=== PATIENT | female | born 1955 | race Caucasian/White ===

== ENCOUNTER 2017-04-14 12:13 | Emergency (ER) | payer BC ==
[~2017-04-14] VITALS: Ht 175.3 cm; Wt 81.6 kg
[~2017-04-14 12:13] MED LIST: LRT5 PO; REVEIWED
[2017-04-14 12:15] VITALS: TEMP 36.9; Ht 175.3 cm; Wt 81.6 kg
[2017-04-14] MEDS ORDERED: RABIES VACCINE (IMOVAX) HUMAN DIPL CELL 2.5 INTER.UNIT/ML SYR IM. ONE (13:00)
[2017-04-14] MEDS ORDERED: RABIES IMMUNE GLOBULIN (HUMAN) 150 INTER.UNIT/ML 2 ML VIAL IM. ONE (13:00)
[2017-04-14] MEDS ORDERED: KRIL1CAP24 PO (14:10)
[2017-04-14] MEDS ORDERED: CYAN10005 PO (14:10)
[2017-04-14] MEDS ORDERED: CHOL1000 PO (14:10)
[2017-04-14] MEDS ORDERED: MULT-190 PO (14:10)
[2017-04-14] MEDS ORDERED: CEPH500C PO (14:30)
[2017-04-14 15:32] VITALS: BP 134/90; PULSE 71; O2SAT 96
--- NOTE | 2017-04-15 18:49 | EMERGENCY ROOM VISIT NOTE ---
History First contact with patient: 12:27 Chief Complaint: BITE Stated Complaint: RACOON BITE History of Present Illness The patient is a 62 year old white female who presents to the Emergency Room with complaints of a raccoon bite on her right lower leg. Patient was in bare [place] and was starting to pick blueberries. She states a angry raccoon came charging out of the bushes and attacked her leg. She tried to send it off with her plastic bucket. She states it had numerous porcupine quills retreating from its face. She states she was bitten twice on her right lower leg. She was not able to kill the animal. She came straight here for evaluation. This was in the middle of the day. She believes it was rapid. She thinks her tetanus is up-to-date. No other complaints at this time. She denies any numbness, tingling, or loss of motion. Review of Systems REVIEW OF SYSTEM: HEENT: No dizziness, visual problems, hearing loss, or tinnitus. There is no difficulty swallowing and no oral lesions are present. LYMPH: No adenopathy. PULMONARY: No cough, shortness of breath, sputum production or hemoptysis. CARDIOVASCULAR: No chest pain, palpitations, shortness of breath or peripheral edema. GASTROINTESTINAL: No diarrhea, constipation, nausea, vomiting, or abdominal pain. GENITOURINARY: No dysuria, frequency, urgency or nocturia. NEUROLOGIC: No weakness, muscle tenderness, epilepsy or history of neurological problems. MUSCULOSKELETAL: No history of joint tenderness/swelling. No history of arthritis or arthralgias. SKIN: No rashes or lesions. PSYCHIATRIC: No history of depression or mental illness. ENDOCRINE: No history of diabetes, thyroid disorders, or abnormal hair growth. Past Medical/Surgical History Previous surgeries: D and C. Medical history: history of pneumonia. Family History parents are . significant for cancer and heart disease Social History Smoking Status: Never Smoker Smokeless Tobacco Use: No Alcohol Use: occasionally Drug Use: none Marital Status: Housing Status: lives with family Occupation Status: unemployed Current/Historical Medications Scheduled Cephalexin Monohydrate (Keflex), 500 MG PO QID Cholecalciferol (Vitamin D3), 1 TAB PO DAILY Cyanocobalamin (Vitamin B-12), 1,000 MCG PO DAILY Krill Oil (Krill Oil 500 mg), 500 MG PO DAILY Ocuvite Preservision (Ocuvite Preservision), 1 TAB PO DAILY Physical Exam Vital Signs Date Time Temp Pulse Resp B/P (MAP) Pulse Ox O2 Delivery O2 Flow Rate FiO2 04/14/17 15:32 71 16 134/90 96 04/14/17 14:13 65 16 157/92 99 Room Air 04/14/17 13:49 63 04/14/17 13:45 61 15 178/94 98 Room Air 04/14/17 12:15 36.9 75 18 163/89 97 Room Air Pain Rating (0-10): 0 Physical Exam Gen.: Well-developed, well-nourished, middle-aged white female, in no acute distress. Sitting on a bed. Alert and oriented. Skin:Warm and dry with good turgor. No rashes. She has 2 fairly large puncture donohue on the anterior lateral leg. Smaller abrasions are also present. She has a large area of abrasion on the posterior lateral aspect of the lower leg. No puncture donohue there. Bleeding is controlled. No foreign material is visible. Developing ecchymosis and erythema around the puncture donohue and abrasions on the lateral leg. The patient is not diaphoretic. No additional abrasions. Musculoskeletal: Gross motor function is intact to the toes, ankle, and knee. Minor discomfort with palpation over the lateral aspect of her leg. Neurologic: Gross sensation is intact across the right leg by soft touch. Peripheral pulses are 2+. Medical Decision & Procedures Medications Administered Medications (Trade) Dose Ordered Sig/Mayela Route Start Time Stop Time Status Last Admin Dose Admin Rabies Immune Globulin (Imogam Rabies Inj) 1,630 interunit ONCE ONCE IM. 04/14/17 13:00 04/14/17 13:01 DC 04/14/17 13:26 1,630 INTERUNIT Rabies Vaccine Human Diploid Cell (Imovax Rabies) 2.5 interunit ONCE ONCE IM. 04/14/17 13:00 04/14/17 13:01 DC 04/14/17 13:27 2.5 INTERUNIT Imovax 1 ML IM. Rabies immunoglobulin 1630 units IM ED Course Patient was educated regarding today's findings. Conservative care measures were discussed. Wounds were cleansed with sterile saline. Triple antibiotic ointment was applied and they were bandaged appropriately. She may change these as needed for swelling. Tylenol and Motrin every 6 hours as needed for mild discomfort. Ice and elevate frequently to reduce pain and swelling. Likelihood for rabies exposure was discussed. She would like to proceed with vaccination. Imovax 1 ML IM was administered. She was also administered rabies immunoglobulin IM. Follow-up in days 3, 7, 14 for additional Imovax injection. She will be in [facility] for day 7 dose. She will try and receive it there in [place]. Animal bite form was completed. Return to the ED for any other concerns or follow-up with her PCP. Possibility of additional bacterial infection was discussed. She was placed on Keflex 500 mg 4 times a day 7 days as a prophylaxis. Benadryl every 6 hours as needed for any itching. Cleanse daily with soap and water. Medical Decision Possibility of rabies, tendon involvement, bacterial infection, and retained foreign body were considered. I do not suspect fracture. Medication Reconcilliation Current Medication List: was personally reviewed by me Blood Pressure Screening Patient's blood pressure: Elevated blood pressure Blood pressure disposition: Elevated BP felt to be situational Impression Primary Impression: Bitten by raccoon, initial encounter Departure Information Dispostion Home / Self-Care Condition GOOD Prescriptions Cephalexin Monohydrate (Keflex) 500 Mg Cap 500 MG PO QID, #28 CAP Prov: Stalin Loyd,P.A. 04/14/17 Forms HOME CARE DOCUMENTATION FORM, Days to leave dressing on : 1 Clean wound with;: soap and water Number of times/day to clean wound: 2 Coat wound with: antibiotic ointment MOTRIN USE, TYLENOL USE, WOUND CARE INSTRUCTIONS, IMPORTANT VISIT INFORMATION Patient Instructions Rabies, My [facility] Additional Instructions Follow-up on Sunday, Sunday, and the following Sunday for your next injections Tylenol and Motrin every 6 hours as needed for mild discomfort Benadryl every 6 hours as needed for any itching or redness Return to the ED for any other concerns Watch for any signs of infection Keflex one pill 4 times a day 7 days Ice and elevate frequently to reduce pain and swelling
== END 2017-04-14 15:33 | disposition home or self-care (01) ==
LOC: C.EDB 12:16 → C.EDD 15:33
DX: S81.851A Open bite, right lower leg, initial encounter (principal); W55.51XA Bitten by raccoon, initial encounter; Y92.89 Other specified places as the place of occurrence of the external cause; Z20.3 Contact with and (suspected) exposure to rabies; Z23 Encounter for immunization; Z87.01 Personal history of pneumonia (recurrent); Z80.9 Family history of malignant neoplasm, unspecified; Z82.49 Family history of ischemic heart disease and other diseases of the circulatory system

== ENCOUNTER 2017-04-17 11:03 | Emergency (ER) | payer BC ==
[~2017-04-17] VITALS: Ht 297.2 cm; Wt 82.8 kg
[~2017-04-17 11:03] MED LIST changes: +CEPH500C PO; +CHOL1000 PO; +CYAN10005 PO; +KRIL1CAP24 PO; -LRT5 PO; +MULT-190 PO; -REVEIWED
[2017-04-17 11:36] VITALS: TEMP 36.7; Ht 297.2 cm; Wt 82.8 kg
[2017-04-17] MEDS ORDERED: RABIES VACCINE (IMOVAX) HUMAN DIPL CELL 2.5 INTER.UNIT/ML SYR IM. ONE (11:42)
[2017-04-17] MEDS ORDERED: ASPI81TA28 PO (11:44)
--- NOTE | 2017-04-17 11:57 | EMERGENCY ROOM VISIT NOTE ---
ED Visit Note First contact with patient: 11:47 CHIEF COMPLAINT: Rabies prophylaxis HISTORY OF PRESENT ILLNESS: This 62-year-old female patient presents to the emergency department ambulatory for their second rabies shot. The patient has not had any complications from the previous injections. They deny any other complaints. The patient was bitten by a raccoon. She states that the bites are healing well. She is on antibiotics. REVIEW OF SYSTEMS: A 6 system review of systems was completed with positives and pertinent negatives listed in the HPI. ALLERGIES: Pseudoephedrine MEDICATIONS: Unchanged from previous PMH: Unchanged from previous visit. PHYSICAL EXAM: Vital Signs: Reviewed Nurse's notes, vital signs stable. GENERAL : 62-year-old female, in no acute distress, well-developed, well-nourished. HEAD: Atraumatic, without temporal or scalp tenderness. EYES: PERRLA, EOMI, no discharge or injection. SKIN: Normal. NEUROLOGICAL: Alert and cooperative. Sensory and motor functions grossly intact. EMERGENCY DEPARTMENT COURSE: I examined the patient. The patient was given Imovax 1ml IM. The patient was observed for 20 minutes with no reaction. The patient was discharged home in stable condition. DIAGNOSIS: Rabies prophylaxis DISCHARGE INSTRUCTIONS: Continue vaccination schedule as directed. Return for any complications. Current/Historical Medications Scheduled Aspirin (Aspirin Ec), 81 MG PO DAILY Cephalexin Monohydrate (Keflex), 500 MG PO QID Cholecalciferol (Vitamin D3), 1 TAB PO DAILY Cyanocobalamin (Vitamin B-12), 1,000 MCG PO DAILY Krill Oil (Krill Oil 500 mg), 500 MG PO DAILY Ocuvite Preservision (Ocuvite Preservision), 1 TAB PO DAILY Allergies Coded Allergies: Pseudoephedrine (Verified Allergy, Mild, 04/17/17) Vital Signs Date Time Temp Pulse Resp B/P (MAP) Pulse Ox O2 Delivery O2 Flow Rate FiO2 04/17/17 12:19 72 20 128/76 99 04/17/17 11:36 36.7 64 18 141/84 97 Room Air Medications Administered Medications (Trade) Dose Ordered Sig/Mayela Route Start Time Stop Time Status Last Admin Dose Admin Rabies Vaccine Human Diploid Cell (Imovax Rabies) 2.5 interunit STK-MED ONCE IM. 04/17/17 11:42 04/17/17 11:43 DC 04/17/17 12:03 2.5 INTERUNIT Departure Information Impression Primary Impression: Need for post exposure prophylaxis for rabies Dispostion Home / Self-Care Condition GOOD Referrals Guillermina Mackenzie D.O. (PCP) Patient Instructions My [facility] Additional Instructions Continue vaccination schedule as directed. Return for any complications. continue antibiotics
[2017-04-17 12:19] VITALS: BP 128/76; PULSE 72; O2SAT 99
== END 2017-04-17 12:21 | disposition home or self-care (01) ==
LOC: C.EDB 11:08 → C.EDD 12:21
DX: Z20.3 Contact with and (suspected) exposure to rabies (principal); Z23 Encounter for immunization; Z79.82 Long term (current) use of aspirin; Z79.899 Other long term (current) drug therapy

== ENCOUNTER → 2017-06-06 | Outpatient (CLI) | payer BC ==
[~2017-06-06] MED LIST changes: +ASPI81TA28 PO
--- NOTE | 2017-06-07 13:55 | MAMMOGRAPHY REPORT ---
BILATERAL DIGITAL SCREENING MAMMOGRAM TOMOSYNTHESIS WITH CAD: 06/06/2017 CLINICAL HISTORY: Routine screening. Patient has no complaints. TECHNIQUE: Breast tomosynthesis in addition to standard 2D mammography was performed. Current study was also evaluated with a Computer Aided Detection (CAD) system. COMPARISON: Comparison is made to exams dated: 04/17/2016 mammogram, 04/02/2015 mammogram, 03/31/2014 gabriella mogram, 03/25/2013 mammogram, 03/15/2012 mammogram, and 03/09/2011 mammogram - [facility]. BREAST COMPOSITION: There are scattered areas of fibroglandular density in both breasts. FINDINGS: No suspicious masses, calcifications, or areas of architectural distortion are noted in ei ther breast. There has been no significant interval change compared to prior exams. Bilateral benign- appearing calcifications are not significantly changed. IMPRESSION: ACR BI-RADS CATEGORY 2: BENIGN There is no mammographic evidence of malignancy. A 1 year screening mammogram is recommended. The pa tient will receive written notification of the results. Approximately 10% of breast cancers are not detected with mammography. A negative mammographic report should not delay biopsy if a clinically suggestive mass is present. Maria Esther Harrison M.D. /:06/06/2017 15:57:38 Screw Machine Tool Setter: Cindy SMITH(Rebeca)(Crystal)(VIDYA), [facility] letter sent: Normal 1/2 BI-RADS Code: ACR BI-RADS Category 2: Benign
== END | disposition home or self-care (01) ==
LOC: C.MAMM 14:01
PROVIDERS: ATTEND Family Medicine
DX: Z12.31 Encounter for screening mammogram for malignant neoplasm of breast (principal)

== ENCOUNTER 2024-01-01 19:49 | Observation (INO) ==
--- NOTE | 2024-01-01 20:09 | Emergency Department Note ---
Impression & Plan SVT (supraventricular tachycardia), Lung cancer ED Provider Note Provider: David Westfall MD DATE OF SERVICE: 01/01/2024 CHIEF COMPLAINT: Palpitations/dizzy/near syncope HISTORY OF PRESENT ILLNESS: Patient is a 68-year-old female history of GERD and lung cancer currently on osimertinib for the past 2 years presenting this evening after developing palpitations and fast heart rate. States she done a little bit of light reading today and had dinner and then felt her heart rate very fast. [place] a little lightheaded and near syncopal but did not pass out. No significant chest pain reported. Did not feel quite right. Noted heart rate was very elevated and tried putting cool rags on her face but then called 911. Found to be in SVT with heart rate in excess of 200 bpm. No history of similar. Patient reports she has had some cardiac evaluation the past due to some brief episodes of low but dizziness but this was different. No significant cardiac history reported. Patient reports she knows that her medication can cause arrhythmia issues. No other recent illnesses reported. Given adenosine by EMS and had resolution of symptoms. PAST MEDICAL HISTORY: As noted above MEDICATIONS: Multivitamin,osimertinib SOCIAL HISTORY: Resides at home PHYSICAL EXAM: GENERAL: alert and oriented in no acute distress on stretcher Head: normocephalic and atraumatic EYES: No injection, discharge or icterus. NECK: Trachea midline. ENT: Mucous membranes pink and moist. Pharynx without erythema or exudate. LUNGS: Airway patent. No retractions. Breath sounds clear with good air entry bilaterally. HEART: Regular rate and rhythm. No chest wall tenderness SKIN: Acyanotic, warm, dry, without rashes EXTREMITIES: Without swelling, tenderness or deformity NEUROLOGICAL: No focal deficits. No aphasia. No facial droop or slurred speech. Ambulatory. EK bpm normal sinus rhythm. No PVC or PAC. No acute ST segment elevation or depression with a QTc of 470. CONTINUOUS CARDIAC MONITORING: was ordered and showed a heart rate of bpm in Patient's laboratory studies and imaging reviewed. Differential includes Premature contractions, electrolyte abnormality, cardiac dysrhythmia, thyroid dysfunction, pulmonary embolism, infection, gastrointestinal, as well as other pathologies. IMPRESSION/MEDICAL DECISION MAKING: History of cancer for the past 2 years on monoclonal antibody. This medication is noted sometimes cause cardiac arrhythmias. No significant personal cardiac history and has had workup in the past 6 months for lipid to dizziness including with echo that was reassuring. Patient had prehospital EKG consistent with SVT over 200 bpm. Received 6 mg of adenosine at termination of rhythm prior to arrival. Denies any respiratory issues or swelling. Denies any significant chest pain. Basic labs and electrolytes were completed. Do question significantly if this is related to medication induced episode. Does follow with oncology Dr. Kwan. Do not feel chest x-ray be that beneficial I doubt a primary pulmonary issue. Doubt this is PE given her rapid resolution of symptomatologies. Blood work without significant abnormality with a borderline anemia and slight leukopenia. Potassium 3.4 not severely off. Magnesium 1.9. Troponin 15 but do not consider the significant abnormal especially in light of an elevated heart rate today. TSH is normal. COVID and urinalysis negative. Discussed with the patient coming in for further cardiac evaluation and monitoring given the prolonged episode of SVT and possible medication related reaction. Hospitalist contacted the patient very much in agreement. DIAGNOSIS: SVT DISPOSITION: Hospitalist will evaluate Patient was agreeable with this plan. Past Med/Surg History Medical History Stroke Hypertension Surgical History History of surgery H/O dilation and curettage History of surgery Cubero teeth extracted Family History Mother Hypertension Cancer Heart disease Father Hypertension Family history of adverse reaction to anesthesia Cancer Brother Hypertension Sister Cancer Son Asthma Grandmother Stroke Social History Smoking Status: Never smoker Tobacco Type: Cigarettes packs per day: 2; Hx Alcohol Use: Yes Alcohol type: beer Alcohol Intake Frequency: 4 or More x per/Week Hx Substance Use: No Preferred Language: Malagasy marital status: Current Living Situation: Spouse current occupational status: retired Feels Safe at Home: Yes Allergies Allergies Allergy/AdvReac Type Severity Reaction Status Date / Time pseudoephedrine Allergy Severe THROAT Verified 01/01/24 21:38 SWELLED Iodinated Contrast Media Allergy Intermediate Hives Verified 01/01/24 21:38 Home Meds Home Medications Medication Instructions Recorded Confirmed multivitamin 1 tab PO DAILY 01/01/24 01/01/24 osimertinib 80 mg tablet (Tagrisso) 80 mg PO DAILY 01/01/24 01/01/24 Results & Data (ED) Vital Signs Vital Signs - 24 hr 01/01/24 19:53 01/01/24 19:59 01/01/24 20:03 Temperature 36.9 C Temperature Source Oral Pulse Rate 97 H 97 H Pulse Rate [Apical] Respiratory Rate 19 Blood Pressure 142/90 H Blood Pressure [Left Arm] Blood Pressure Mean 107 Blood Pressure Mean [Left Arm] Pulse Oximetry 96 98 Oxygen Delivery Method Room Air Room Air Oxygen Flow Rate 0 Sepsis Recent Fever Within 48 Hours No Sepsis New/Unexplained Change in Mental Status N/A Sepsis Action Taken by Nursing No Action Required 01/01/24 21:00 Temperature Temperature Source Pulse Rate Pulse Rate [Apical] 83 Respiratory Rate 16 Blood Pressure Blood Pressure [Left Arm] 110/68 Blood Pressure Mean Blood Pressure Mean [Left Arm] 82 Pulse Oximetry 98 Oxygen Delivery Method Room Air Oxygen Flow Rate Sepsis Recent Fever Within 48 Hours Sepsis New/Unexplained Change in Mental Status Sepsis Action Taken by Nursing Laboratory Data 01/01/24 20:23 01/01/24 20:23 Lab Results 01/01/24 Range/Units 20:23 WBC 3.32 L (4.8-10.8) K/ul RBC 3.57 L (4.20-5.40) M/uL Hgb 11.7 L (12.0-16.0) g/dl Hct 33.9 L (37.0-47.0) % MCV 95.0 (80.0-100.0) fL MCH 32.8 (25.0-34.0) pg MCHC 34.5 (32.0-36.0) g/dL RDW Std Deviation 44.6 (36.4-46.3) fL RDW Coeff of Janice 12.7 (11.5-14.5) % Plt Count 139 (130-400) K/uL MPV 10.2 (9.4-12.4) fL Immature Gran % (Auto) 0.3 % Neut % (Auto) 59.7 % Lymph % (Auto) 29.5 % [place] % (Auto) 9.0 % Eos % (Auto) 1.2 % Baso % (Auto) 0.3 % Neut # (Auto) 1.98 (1.40-6.50) K/uL Lymph # (Auto) 0.98 L (1.20-3.40) K/uL [place] # (Auto) 0.30 (0.11-0.59) K/uL Eos # (Auto) 0.04 (0.00-0.50) K/uL Baso # (Auto) 0.01 (0.00-0.20) K/uL Immature Gran # (Auto) 0.01 (0.01-0.20) K/uL PT 10.5 (9.0-12.0) Seconds INR 1.0 (0.9-1.1) APTT 25 (21-31) Seconds PTT Ratio 0.9 Sodium 137 (136-145) mmol/L Potassium 3.4 L (3.5-5.1) mmol/L Chloride 103 (98-107) mmol/L Carbon Dioxide 29 (21-32) mmol/L Anion Gap 5 (3-11) BUN 13 (6-23) mg/dl Creatinine 0.89 (0.6-1.2) mg/dl Est Cr Clr Drug Dosing 68.1 ml/min Est GFR ( Amer) 76.6 ml/min Est GFR (Non-Af Amer) 66.1 ml/min BUN/Creatinine Ratio 14.6 (10-20) Glucose 103 H (70-99(Fasting)) mg/dl Calcium 9.0 (8.6-10.3) mg/dl Magnesium 1.9 (1.7-2.4) mg/dl Total Bilirubin 0.4 (0.2-1.0) mg/dl AST 29 (13-39) U/L ALT 17 (7-52) U/L Alkaline Phosphatase 54 (34-104) U/L Troponin I High Sens 15.4 H (0-14) pg/ml Total Protein 5.8 L (6.0-8.3) gm/dl Albumin 3.8 (3.4-5.0) gm/dl Globulin 2.0 L (2.5-4.0) gm/dl Albumin/Globulin Ratio 1.9 (0.9-2) TSH 2.136 (0.300-4.500) uIu/ml Urine Color Yellow Urine Appearance Clear (Clear) Urine pH 7.5 (4.5-7.5) Ur Specific [place] 1.007 (1.000-1.030) Urine Protein Negative (Negative) Urine Glucose (UA) Negative (Negative) Urine Ketones Negative (Negative) Urine Blood Negative (Negative) Urine Nitrite Negative (Negative) Urine Bilirubin Negative (Negative) Urine Urobilinogen Negative (Negative) Ur Leukocyte Esterase 1+ H (Negative) Urine WBC (Auto) 0-5 (0-5) /hpf Urine RBC (Auto) 0-2 (0-2) /hpf U Hyaline Cast (Auto) 0-2 (0-2) /lpf U Epithel Cells (Auto) 0-2 (0-2) /hpf Urine Bacteria (Auto) None Seen (None Seen) SARS-CoV-2, RNA, NAAT NEGATIVE (NEGATIVE) Discharge Plan Visit Data Chief Complaint: Cardiac Assessment Stated Complaint: CHEST PRESSURE, SVT ED Provider: David Westfall Discharge Problem: SVT (supraventricular tachycardia), Lung cancer Patient Disposition: Being Evaluated by Hospitalist Forms Stand Alone Forms: [facility] Prescriptions Prescriptions: No Action multivitamin Tablet 1 tab PO DAILY Tagrisso 80 mg tablet 80 mg PO DAILY Referrals Referrals: Duncan Harris MD [Primary Care Provider] -
[2024-01-01 20:47] LABS: Basophils # (auto) 0.01 K/uL (0.00-0.20); Basophils % (auto) 0.3 %; Eosinophils # (auto) 0.04 K/uL (0.00-0.50); Eosinophils % (auto) 1.2 %; Hematocrit (blood only) 33.9 % (37.0-47.0); Hemoglobin 11.7 g/dl (12.0-16.0); Immature Granulocytes # (auto) 0.01 K/uL (0.01-0.20); Immature Granulocytes % (auto) 0.3 %; Lymphocytes # (auto) 0.98 K/uL (1.20-3.40); Lymphocytes % (auto) 29.5 %; Mean Corpuscular Hemoglobin 32.8 pg (25.0-34.0); Mean Corpuscular Hgb Conc 34.5 g/dL (32.0-36.0); Mean Platelet Volume 10.2 fL (9.4-12.4); Neutrophils # (auto) 1.98 K/uL (1.40-6.50); Neutrophils % (auto) 59.7 %; Platelet Count 139 K/uL (130-400); RDW Coefficient of Variation 12.7 % (11.5-14.5); RDW Standard Deviation 44.6 fL (36.4-46.3); Red Blood Count 3.57 M/uL (4.20-5.40); White Blood Count 3.32 K/ul (4.8-10.8)
[2024-01-01 20:49] LABS: Appearance Urine Clear (Clear); Bacteria Urine Automated None Seen (None Seen); Bilirubin Urine Negative (Negative); Blood Urine Negative (Negative); Cast Urine Automated 0-2 /lpf (0-2); Color Urine Yellow; Epithelial Cell Urine Auto 0-2 /hpf (0-2); Glucose Urine UA Negative (Negative); Ketones Urine Negative (Negative); Leukocyte Esterase Urine 1+ (Negative); Nitrite Urine Negative (Negative); Protein Urine Negative (Negative); RBC Urine Automated 0-2 /hpf (0-2); Specific Gravity Urine 1.007 (1.000-1.030); Urobilinogen Urine Negative (Negative); WBC Urine Automated 0-5 /hpf (0-5); pH Urine 7.5 (4.5-7.5)
[2024-01-01 20:53] LABS: Partial Thromboplastin Ratio 0.9; Partial Thromboplastin Time 25 Seconds (21-31); Prothrombin Time 10.5 Seconds (9.0-12.0)
[2024-01-01 21:00] LABS: Albumin Globulin Ratio 1.9 (0.9-2); Albumin Level 3.8 gm/dl (3.4-5.0); BUN Creatinine Ratio 14.6 (10-20); Bilirubin,Total 0.4 mg/dl (0.2-1.0); Creatinine Clr Calc Pharmacy 68.1 ml/min; Est GFR (African American) 76.6 ml/min; Est GFR (Non-African American) 66.1 ml/min; Magnesium 1.9 mg/dl (1.7-2.4); Potassium 3.4 mmol/L (3.5-5.1); Total Protein 5.8 gm/dl (6.0-8.3)
[2024-01-01 21:07] LABS: Troponin I High Sensitivity 15.4 pg/ml (0-14)
[2024-01-01 21:16] LABS: Thyroid Stimulating Hormone 2.136 uIu/ml (0.300-4.500)
[2024-01-01 23:03] LABS: D Dimer 340 ug/L FEU (0-500)
[2024-01-01] MEDS: MAGNESIUM SULFATE / D5W 1 GM/100 ML BAG IV ONE (23:03)
[2024-01-01] MEDS: POTASSIUM CHLORIDE CRTAB 20 MEQ TABCR PO STA (23:03)
[2024-01-01] MEDS: NSS + 20MEQ KCL 20 MEQ/1,000 ML BAG IV ONE (23:41)
--- NOTE | 2024-01-02 00:21 | History & Physical Report ---
Date of Service January 02, 2024 Assessment & Plan (1) Tachyarrhythmia: Plan: PSVT at home NSVT documented in patient Hypokalemia stage III lung adenocarcinoma status status post surgery/chemotherapy currently on Tagrisso past tobacco abuse OBS PCU Replace potassium to attain goal serum level of at least 4. Maintain serum magnesium level of at least 2 Initiate low-dose beta-prashanth to suppress ectopy TTE, Cardiology consult Re: PSVT/NSVT (Patient known to Dr. Johnson.) DVT prophylaxis. Lovenox subcu Full code Text document was generated using BAUNAT voice recognition software. It may contain grammatical or spelling errors. Kindly contact undersigned for clarification of any documentation item in question. History of Present Illness Chief Complaint: Palpitations, SVT Primary Care Provider: Duncan Harris MD History obtained from patient, family, and records. Medical history significant for stage III lung adenocarcinoma status status post surgery/chemotherapy currently on Tagrisso, past tobacco abuse. Patient seen at [facility] 4 months ago for near syncope/lightheadedness episodes occurring with exercise and associated with palpitations around July,. Arrhythmia versus transient hypotension as per note. Consider 30-day monitor to rule out asymptomatic arrhythmias if with recurrence. Patient noted lightheadedness upon bending down last night. Subsequent palpitations described as fast heartbeat along with funny sensation in her chest. No unusual SOB. Denies unusual stress or inordinate caffeine intake. Patient found to be in SVT by EMS. SVT and symptoms terminated with 1 dose of adenosine. Patient brought to ER for evaluation. She is currently comfortable. NSVT episode noted during ER stay. 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 Allergies Allergy/AdvReac Type Severity Reaction Status Date / Time pseudoephedrine Allergy Severe THROAT Verified 01/01/24 21:38 SWELLED Iodinated Contrast Media Allergy Intermediate Hives Verified 01/01/24 21:38 Home Medications Medication Instructions Recorded Confirmed Type multivitamin 1 tab PO DAILY 01/01/24 01/01/24 History osimertinib 80 mg tablet (Tagrisso) 80 mg PO DAILY 01/01/24 01/01/24 History Past Med/Surg History Medical History Stroke Hypertension Surgical History History of surgery H/O dilation and curettage History of surgery [place] teeth extracted Family History Mother Hypertension Cancer Heart disease Father Hypertension Family history of adverse reaction to anesthesia Cancer Brother Hypertension Sister Cancer Son Asthma Grandmother Stroke Social History Smoking Status: Never smoker Tobacco Type: Cigarettes packs per day: 2; Hx Alcohol Use: Yes Alcohol type: beer Alcohol Intake Frequency: 4 or More x per/Week Hx Substance Use: No Preferred Language: Australian 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 Beliefs That Will Affect Care: None marital status: Current Living Situation: Spouse current occupational status: retired Feels Safe at Home: Yes Assistive Devices: None Review of Systems Review of Systems: As per HPI, all other systems reviewed and negative Physical Exam Physical Exam: GENERAL: Comfortable, pleasant, no respiratory distress SKIN: Normal color, warm HEENT: [place] palpebral conjunctivae, no ptosis, dry buccal mucosa NECK : Supple, no tenderness CHEST : CTA, no tenderness HEART : RRR, no obvious murmurs ABDOMEN: no distention, nontender EXTREMITIES : Minimal LE swelling, no LE tenderness, no other conspicuous deformities noted NEUROLOGIC : Coherent, no facial asymmetry, no other gross focality Results & Data Results & Data Vital Signs (Past 12 Hours) Vital Signs Temp Pulse Pulse Resp BP BP Pulse Ox 01/01/24 23:59 73 01/01/24 23:00 74 12 114/76 99 01/01/24 21:00 83 16 110/68 98 01/01/24 20:03 97 H 01/01/24 19:59 98 01/01/24 19:53 36.9 C 97 H 19 142/90 H 96 O2 Del Method O2 Flow Rate 01/01/24 23:59 01/01/24 23:00 Room Air 01/01/24 21:00 Room Air 01/01/24 20:03 01/01/24 19:59 Room Air 0 01/01/24 19:53 Room Air Laboratory Results Laboratory Results WBC 3.32 K/ul (4.8-10.8) L 01/01/24 20: RBC 3.57 M/uL (4.20-5.40) L 01/01/24 20:23 Hgb 11.7 g/dl (12.0-16.0) L 01/01/24 20: Hct 33.9 % (37.0-47.0) L 01/01/24 20: MCV 95.0 fL (80.0-100.0) 01/01/24 20: MCH 32.8 pg (25.0-34.0) 01/01/24 20: MCHC 34.5 g/dL (32.0-36.0) 01/01/24: RDW Std Deviation 44.6 fL (36.4-46.3) 01/01/24: RDW Coeff of Janice 12.7 % (11.5-14.5) 01/01/24: Plt Count 139 K/uL (130-400) 01/01/24 20: MPV 10.2 fL (9.4-12.4) 01/01/24 20: Immature Gran % (Auto) 0.3 % 01/01/24 20: Neut % (Auto) 59.7 % 01/01/24 20: Lymph % (Auto) 29.5 % 01/01/24 20:23 [place] % (Auto) 9.0 % 01/01/24 20: Eos % (Auto) 1.2 % 01/01/24 20: Baso % (Auto) 0.3 % 01/01/24 20: Neut # (Auto) 1.98 K/uL (1.40-6.50) 01/01/24 20: Lymph # (Auto) 0.98 K/uL (1.20-3.40) L 01/01/24 20: [place] # (Auto) 0.30 K/uL (0.11-0.59) 01/01/24 20: Eos # (Auto) 0.04 K/uL (0.00-0.50) 01/01/24 20: Baso # (Auto) 0.01 K/uL (0.00-0.20) 01/01/24 20:23 Immature Gran # (Auto) 0.01 K/uL (0.01-0.20) 01/01/24 20:23 PT 10.5 Seconds (9.0-12.0) 01/01/24 20:23 INR 1.0 (0.9-1.1) 01/01/24 20:23 APTT 25 Seconds (21-31) 01/01/24 20:23 PTT Ratio 0.9 01/01/24 20:23 D-Dimer 340 ug/L FEU (0-500) 01/01/24 20:23 Sodium 137 mmol/L (136-145) 01/01/24 20:23 Potassium 3.4 mmol/L (3.5-5.1) L 01/01/24 20:23 Chloride 103 mmol/L (98-107) 01/01/24 20:23 Carbon Dioxide 29 mmol/L (21-32) 01/01/24 20:23 Anion Gap 5 (3-11) 01/01/24 20:23 BUN 13 mg/dl (6-23) 01/01/24 20:23 Creatinine 0.89 mg/dl (0.6-1.2) 01/01/24 20:23 Est Cr Clr Drug Dosing 68.1 ml/min 01/01/24 20:23 Est GFR ( Amer) 76.6 ml/min 01/01/24 20:23 Est GFR (Non-Af Amer) 66.1 ml/min 01/01/24 20:23 BUN/Creatinine Ratio 14.6 (10-20) 01/01/24 20:23 Glucose 103 mg/dl (70-99(Fasting)) H 01/01/24 20:23 Calcium 9.0 mg/dl (8.6-10.3) 01/01/24 20:23 Magnesium 1.9 mg/dl (1.7-2.4) 01/01/24 20:23 Total Bilirubin 0.4 mg/dl (0.2-1.0) 01/01/24 20:23 AST 29 U/L (13-39) 01/01/24 20:23 ALT 17 U/L (7-52) 01/01/24 20:23 Alkaline Phosphatase 54 U/L (34-104) 01/01/24 20:23 Troponin I High Sens 70.7 pg/ml (0-14) H* D 01/01/24 23:01 Total Protein 5.8 gm/dl (6.0-8.3) L 01/01/24 20:23 Albumin 3.8 gm/dl (3.4-5.0) 01/01/24 20: Globulin 2.0 gm/dl (2.5-4.0) L 01/01/24 20:23 Albumin/Globulin Ratio 1.9 (0.9-2) 01/01/24 20:23 TSH 2.136 uIu/ml (0.300-4.500) 01/01/24 20: Urine Color Yellow 01/01/24 20: Urine Appearance Clear (Clear) 01/01/24 20: Urine pH 7.5 (4.5-7.5) 01/01/24 20:23 Ur Specific [place] 1.007 (1.000-1.030) 01/01/24 20:23 Urine Protein Negative (Negative) 01/01/24 20:23 Urine Glucose (UA) Negative (Negative) 01/01/24 20:23 Urine Ketones Negative (Negative) 01/01/24 20: Urine Blood Negative (Negative) 01/01/24 20: Urine Nitrite Negative (Negative) 01/01/24 20:23 Urine Bilirubin Negative (Negative) 01/01/24 20:23 Urine Urobilinogen Negative (Negative) 01/01/24 20:23 Ur Leukocyte Esterase 1+ (Negative) H 01/01/24 20:23 Urine WBC (Auto) 0-5 /hpf (0-5) 01/01/24 20:23 Urine RBC (Auto) 0-2 /hpf (0-2) 01/01/24 20: U Hyaline Cast (Auto) 0-2 /lpf (0-2) 01/01/24 20: U Epithel Cells (Auto) 0-2 /hpf (0-2) 01/01/24 20:23 Urine Bacteria (Auto) None Seen (None Seen) 01/01/24 20:23 SARS-CoV-2, RNA, NAAT NEGATIVE (NEGATIVE) 01/01/24 20:23 Diagnostic Findings Chest x-ray as per my interpretation atelectasis EKG as per my interpretation : Rate 95, NSR, normal axis, no ischemia, low voltage
[2024-01-02] MEDS ORDERED: LORazepam 0.5 MG TAB PO PRN (00:23)
[2024-01-02] MEDS ORDERED: traMADol HCL 50 MG TABLET PO PRN (00:23)
[2024-01-02] MEDS ORDERED: PROMETHAZINE HCL 6.25 MG in SODIUM CHLORIDE 0.9% 50 ML IV PRN (00:23)
[2024-01-02] MEDS ORDERED: ACETAMINOPHEN 325 MG TAB PO PRN (00:23)
[2024-01-02] MEDS: METOPROLOL TARTRATE 25 MG TAB PO STA (01:44)
[2024-01-02 06:52] LABS: Basophils # (auto) 0.01 K/uL (0.00-0.20); Basophils % (auto) 0.3 %; Eosinophils # (auto) 0.07 K/uL (0.00-0.50); Eosinophils % (auto) 2.4 %; Hematocrit (blood only) 34.6 % (37.0-47.0); Hemoglobin 11.6 g/dl (12.0-16.0); Immature Granulocytes # (auto) 0.02 K/uL (0.01-0.20); Immature Granulocytes % (auto) 0.7 %; Lymphocytes # (auto) 1.04 K/uL (1.20-3.40); Lymphocytes % (auto) 35.6 %; Mean Corpuscular Hemoglobin 32.6 pg (25.0-34.0); Mean Corpuscular Hgb Conc 33.5 g/dL (32.0-36.0); Mean Corpuscular Volume 97.2 fL (80.0-100.0); Mean Platelet Volume 10.3 fL (9.4-12.4); Monocytes # (auto) 0.34 K/uL (0.11-0.59); Monocytes % (auto) 11.6 %; Neutrophils # (auto) 1.44 K/uL (1.40-6.50); Neutrophils % (auto) 49.4 %; Platelet Count 132 K/uL (130-400); Red Blood Count 3.56 M/uL (4.20-5.40); White Blood Count 2.92 K/ul (4.8-10.8)
[2024-01-02 07:05] LABS: BUN Creatinine Ratio 12.2 (10-20); Calcium 8.1 mg/dl (8.6-10.3); Creatinine Clr Calc Pharmacy 66.7 ml/min; Est GFR (African American) 75.6 ml/min; Est GFR (Non-African American) 65.2 ml/min; Potassium 4.4 mmol/L (3.5-5.1)
[2024-01-02 07:12] LABS: Troponin I High Sensitivity 47.6 pg/ml (0-14)
--- NOTE | 2024-01-02 07:12 | XRay Report ---
XR chest 1V portable CLINICAL HISTORY: palpitations TECHNIQUE: Single frontal radiograph of the chest was obtained. Comparison: Comparison is made to chest radiograph 09/24/2022 FINDINGS: No lines and tubes are seen. The cardiomediastinal silhouette is normal. Prominence and cephalization of the vasculature is seen. No evidence of pleural effusion or pneumothorax. IMPRESSION: Possible minimal pulmonary vascular congestion. ACT 112: Negative or not required by law. Electronically signed by: Terrell Tesfaye M.D. 01/02/2024 7:11 AM
[2024-01-02] MEDS: MULTIVITAMIN TAB PO SCH (09:41)
[2024-01-02] MEDS: ENOXAPARIN INJ 40 MG/0.4 ML SYR SQ SCH (09:46)
--- NOTE | 2024-01-02 10:08 | Cardiology Consultation ---
Date of Consultation January 02, 2024 Assessment & Plan (1) SVT (supraventricular tachycardia): (2) Near syncope: (3) Elevated troponin: Plan ASSESSMENT/PLAN: 1. SVT: Was sustained and symptomatic. Heart rates over 200 bpm. Discussed the diagnosis. Discussed treatment options such as antiarrhythmic therapy, EP study with ablation, or monitor for future symptoms. Concerning that perhaps her near syncope several months ago may have also represented SVT, but cannot definitively know. Recommend evaluation by electrophysiology to discuss potential EP study/ablation. Recommended 911 for recurrent symptoms. 2. Elevated troponin: High-sensitivity troponin minimally elevated and likely due to demand ischemia in the setting of prolonged SVT with heart rates in the 200s. She has not had any anginal symptoms despite regular physical activity. Ischemic evaluation not necessary at this time. 3. Near syncope: Plan as above. She appears euvolemic. Likely related to transient hypotension in the setting of tacky arrhythmia. 4. Disposition: Can be discharged home from a cardiac perspective. Recommend evaluation by electrophysiology in the outpatient setting. Will help facilitate this. Plan of care communicated with primary hospitalist, Dr. Rodriguez. Today's visit was 55 minutes in duration, which includes [id number] time, counseling patient, coordinating care, reviewing records, and completing documentation. Highly complex medical issue. Thank you for allowing me to participate in the care of your patient. Please call for any other questions or concerns. Sincerely, Ever Mina M.D. History of Present Illness Reason for Consultation: SVT Requesting Physician: Dr. Pardo Attending Physician: Yareli Liu MD History of Present Illness Mrs. Quinn is a very pleasant 68-year-old female with a history significant for stage III lung adenocarcinoma (s/p right lower lobectomy and chemotherapy), stroke based on prior imaging years ago, and preeclampsia. She has been seen by Dr. Dominguez and Dr. Johnson in the past. She was admitted on 01/02/2024 after developing palpitations described as a racing sensation and near syncope. This began on 01/01/2024 at approximately 6:30 PM. She was standing up at the time and had worked in the garden throughout the day but drink extra water to remain well-hydrated. Her symptoms persisted for 30 to 40 minutes before she received adenosine by EMS after they identified SVT with heart rates in the 200s. She immediately felt better. She has not had any recurrent symptoms while here. Prior to EMS arriving, she tried coughing and using a cold washcloth on her face but no improvement of her symptoms. She has had chronic palpitations described as a "gap" in her heartbeat and states that she wore a monitor in the past and was told that there was no significant arrhythmia. These palpitations have been occurring for approximately 20 years. She had 2 episodes of near syncope in the fall 2022 on 2 separate occasions but no palpitations at that time. She was seen by Dr. Johnson on 09/19/2023 who considered outpatient monitoring but because symptoms had resolved, held off at that time. She denies nausea, vomiting, syncope, chest pain, shortness of breath, edema, melena, hematochezia, hematuria, or fever. She has occasional loose stools, but nothing out of the ordinary. She feels back to baseline. Review of systems: As above. Review of systems otherwise negative/unremarkable. Family history: Mother diagnosed with CAD in her 50s but was a heavy smoker. Social history: She smoked in her teenage years over a pack per day at times but quit at age 19. Occasional alcohol. No drugs. She lives at home with her . 2 adult children. Retired from [employer]. Her presented to the bedside. Allergies Allergy/AdvReac Type Severity Reaction Status Date / Time pseudoephedrine Allergy Severe THROAT Verified 01/01/24 21:38 SWELLED Iodinated Contrast Media Allergy Intermediate Hives Verified 01/01/24 21:38 Home Medications Medication Instructions Recorded Confirmed Type multivitamin 1 tab PO DAILY 01/01/24 01/01/24 History osimertinib 80 mg tablet (Tagrisso) 80 mg PO DAILY 01/01/24 01/01/24 History Patient History Medical History Adenocarcinoma, lung Stroke 6(mini) Surgical History History of surgery Lobectomy H/O dilation and curettage History of surgery Shoulder Decompression [place] teeth extracted Family History Mother Hypertension Cancer Heart disease Father Hypertension Family history of adverse reaction to anesthesia Cancer Brother Hypertension Sister Cancer Son Asthma Grandmother Stroke Social History Smoking Status: Never smoker Tobacco Type: Cigarettes packs per day: 2; Hx Alcohol Use: Yes Alcohol type: beer Alcohol Intake Frequency: 4 or More x per/Week Hx Substance Use: No Preferred Language: Khmer 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 Alert and oriented. HEENT: Anicteric sclera. Neck: No JVD. No bruits. Normal carotid upstrokes bilaterally. Cardiac: No ventricular heave. Regular. Normal S1-S2. 1/6 systolic murmur. Pulmonary: Clear to auscultation bilaterally without wheezes, rales, or rhonchi. Abdomen: Soft, nontender, nondistended, with normoactive bowel sounds. No bruits noted. Extremities: 2+ radial pulses bilaterally. 2+ posterior tibialis pulses bilaterally. No edema or cyanosis. Psychiatric: Affect appears appropriate. Results & Data Vital Signs (Past 12 Hours) Vital Signs Temp Pulse Pulse Resp BP BP Pulse Ox 01/02/24 09:01 122/81 01/02/24 09:01 65 15 01/02/24 08:30 113/69 01/02/24 08:30 62 12 01/02/24 08:00 123/75 01/02/24 08:00 61 17 98 01/02/24 07:30 122/87 01/02/24 07:30 63 18 97 01/02/24 07:30 63 01/02/24 07:09 63 15 96 01/02/24 04:18 36.6 C 62 14 102/65 98 01/02/24 01:00 01/02/24 01:00 77 14 107/57 L 100 01/02/24 00:30 120/79 01/02/24 00:30 70 15 98 01/02/24 00:00 114/73 01/02/24 00:00 72 16 98 01/01/24 23:59 73 01/01/24 23:30 72 23 97 01/01/24 23:30 104/68 01/01/24 23:00 114/76 01/01/24 23:00 74 18 99 01/01/24 23:00 74 12 114/76 99 01/01/24 22:30 103/68 01/01/24 22:30 74 17 98 Pulse Ox O2 Del Method O2 Del Method O2 Flow Rate 01/02/24 09:01 01/02/24 09:01 01/02/24 08:30 01/02/24 08:30 01/02/24 08:00 01/02/24 08:00 01/02/24 07:30 01/02/24 07:30 01/02/24 07:30 01/02/24 07:09 01/02/24 04:18 Room Air 01/02/24 01:00 99 Room Air 0 01/02/24 01:00 Room Air 01/02/24 00:30 01/02/24 00:30 01/02/24 00:00 01/02/24 00:00 01/01/24 23:59 01/01/24 23:30 01/01/24 23:30 01/01/24 23:00 01/01/24 23:00 01/01/24 23:00 Room Air 01/01/24 22:30 01/01/24 22:30 Laboratory Results Laboratory Results - last 24 hr 01/01/24 01/01/24 01/02/24 20:23 23:01 06:08 WBC 3.32 L 2.92 L RBC 3.57 L 3.56 L Hgb 11.7 L 11.6 L Hct 33.9 L 34.6 L MCV 95.0 97.2 MCH 32.8 32.6 MCHC 34.5 33.5 RDW Std Deviation 44.6 47.0 H RDW Coeff of Janice 12.7 13.0 Plt Count 139 132 MPV 10.2 10.3 Immature Gran % (Auto) 0.3 0.7 Neut % (Auto) 59.7 49.4 Lymph % (Auto) 29.5 35.6 [place] % (Auto) 9.0 11.6 Eos % (Auto) 1.2 2.4 Baso % (Auto) 0.3 0.3 Neut # (Auto) 1.98 1.44 Lymph # (Auto) 0.98 L 1.04 L [place] # (Auto) 0.30 0.34 Eos # (Auto) 0.04 0.07 Baso # (Auto) 0.01 0.01 Immature Gran # (Auto) 0.01 0.02 PT 10.5 INR 1.0 APTT 25 PTT Ratio 0.9 D-Dimer 340 Sodium 137 142 Potassium 3.4 L 4.4 D Chloride 103 109 H Carbon Dioxide 29 29 Anion Gap 5 4 BUN 13 11 Creatinine 0.89 0.90 Est Cr Clr Drug Dosing 68.1 66.7 Est GFR ( Amer) 76.6 75.6 Est GFR (Non-Af Amer) 66.1 65.2 BUN/Creatinine Ratio 14.6 12.2 Glucose 103 H 95 Calcium 9.0 8.1 L Magnesium 1.9 Total Bilirubin 0.4 AST 29 ALT 17 Alkaline Phosphatase 54 Troponin I High Sens 15.4 H 70.7 H* D 47.6 H D Total Protein 5.8 L Albumin 3.8 Globulin 2.0 L Albumin/Globulin Ratio 1.9 TSH 2.136 Urine Color Yellow Urine Appearance Clear Urine pH 7.5 Ur Specific [place] 1.007 Urine Protein Negative Urine Glucose (UA) Negative Urine Ketones Negative Urine Blood Negative Urine Nitrite Negative Urine Bilirubin Negative Urine Urobilinogen Negative Ur Leukocyte Esterase 1+ H Urine WBC (Auto) 0-5 Urine RBC (Auto) 0-2 U Hyaline Cast (Auto) 0-2 U Epithel Cells (Auto) 0-2 Urine Bacteria (Auto) None Seen SARS-CoV-2, RNA, NAAT NEGATIVE Diagnostic Findings ECHO 01/02/24: 1. Normal left ventricular size and systolic function. EF 55-60%. No regional wall motion abnormalities. Mild concentric left ventricular hypertrophy. 2. Mild left atrial dilation. 3. No significant valvular abnormalities visualized. 4. Normal estimated right ventricular systolic pressure. 5. No significant change from prior study on 08/16/2023. Telemetry personally reviewed: Prehospital, SVT with heart rate approximately 215 bpm with retrograde P wave. While here, predominantly sinus rhythm with nonsustained atrial tachycardia on 01/01/2024 2255 and nonsustained ventricular tachycardia (10 beats) today at 0044 AM. Labs reviewed and notable for mild anemia, leukopenia, very mild hypokalemia on presentation which has since normalized, normal renal function, normal magnesium, normal transaminase levels, normal TSH, mildly elevated high- sensitivity troponin. Prior electrophysiology note reviewed. Chest x-ray 01/01/2024: Prominence and cephalization of pulmonary vasculature. No obvious infiltrate on personal review. ECG personally reviewed 01/01/2024: NSR 94 bpm. EMS telemetry strips personally reviewed: SVT with retrograde P wave heart rate approximately 215 bpm. Medications Administered Current Inpatient Medications Acetaminophen (Acetaminophen 325 Mg Tab) 650 mg PO QID PRN PRN Reason: pain/fever Stop: 02/01/24 00:22 Enoxaparin Sodium (Enoxaparin Inj 40 Mg/0.4 Ml Syr) 40 mg SQ QAM [facility] Stop: 02/01/24 08:59 Last Admin: 01/02/24 09:46 Dose: Not Given Promethazine HCl 6.25 mg/ (Sodium Chloride) 50.25 mls @ 201 mls/hr IV Q6H PRN PRN Reason: Nausea And Vomiting Stop: 02/01/24 00:22 Lorazepam (Lorazepam 0.5 Mg Tab) 0.5 mg PO TID PRN PRN Reason: Anxiety Stop: 02/01/24 00:22 Metoprolol Tartrate (Metoprolol Tartrate 25 Mg Tab) 12.5 mg PO BID [facility] Stop: 02/01/24 20:59 Miscellaneous (*Tagrisso*Order Awaiting Action) 1 each N/A QS [facility] Stop: 02/01/24 07:59 Last Admin: 01/02/24 09:45 Dose: Not Given Multivitamins (Multivitamin Tab) 1 tab PO DAILY C[facility] Stop: 02/01/24 08:59 Last Admin: 01/02/24 09:41 Dose: 1 tab Tramadol HCl (Tramadol Hcl 50 Mg Tablet) 25 mg PO Q4H PRN PRN Reason: Pain Stop: 02/01/24 00:22 PG Care Time/CCT Total # of Minutes Spent Total Time Spent with Patient: Total time spent is greater than 50% in coordination of care (as documented) at patient's floor/unit and/or counseling patient: Coding Level of Care Code 33975 INT INP/OBS CARE 3/75MIN Diagnoses SVT (supraventricular tachycardia) I47.10 Near syncope R55 Elevated troponin R79.89 Time Spent (min) 55
--- NOTE | 2024-01-02 10:12 | XCELERA ---
[id number] [id number]
--- NOTE | 2024-01-02 13:03 | Discharge Summary ---
Date of Service January 02, 2024 Admission HPI Per Admitting Provider History obtained from patient, family, and records. Medical history significant for stage III lung adenocarcinoma status status post surgery/chemotherapy currently on Tagrisso, past tobacco abuse. Patient seen at [facility] Cardiology office 4 months ago for near syncope/lightheadedness episodes occurring with exercise and associated with palpitations around July,. Arrhythmia versus transient hypotension as per note. Consider 30-day monitor to rule out asymptomatic arrhythmias if with recurrence. Patient noted lightheadedness upon bending down last night. Subsequent palpitations described as fast heartbeat along with funny sensation in her chest. No unusual SOB. Denies unusual stress or inordinate caffeine intake. Patient found to be in SVT by EMS. SVT and symptoms terminated with 1 dose of adenosine. Patient brought to ER for evaluation. She is currently comfortable. NSVT episode noted during ER stay. 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 Admission Exam Per Admitting Provider GENERAL: Comfortable, pleasant, no respiratory distress SKIN: Normal color, warm HEENT: [place] palpebral conjunctivae, no ptosis, dry buccal mucosa NECK : Supple, no tenderness CHEST : CTA, no tenderness HEART : RRR, no obvious murmurs ABDOMEN: no distention, nontender EXTREMITIES : Minimal LE swelling, no LE tenderness, no other conspicuous deformities noted NEUROLOGIC : Coherent, no facial asymmetry, no other gross focality Principal Diagnosis Supraventricular tachycardia Near syncope Discharge Exam Constitutional + well hydrated; no acute distress Eyes PERRL, conjunctivae normal, anicteric sclerae ENMT external ear and nose normal, oropharynx normal Respiratory normal respiratory effort, lungs clear to auscultation Cardiovascular Rate/Rhythm: regular rate and regular rhythm S1 S2 Gastrointestinal (Abdomen) Soft, NT, normal bowel sounds Musculoskeletal no cyanosis or clubbing, extremities motor strength 5/5 Neurologic PERRL, EOMI, accommodation nl, no face palsy, no dysarthria Psychiatric A+Ox3, euthymic affect Discharge Data Allergies Allergy/AdvReac Type Severity Reaction Status Date / Time pseudoephedrine Allergy Severe THROAT Verified 01/01/24 21:38 SWELLED Iodinated Contrast Media Allergy Intermediate Hives Verified 01/01/24 21:38 Consultations 01/01/24 21:34 ED Decision to Admit Stat 01/02/24 01:27 Consult Cardiology Routine Hospital Course (1) Tachyarrhythmia: Supraventricular tachycardia, resolved Near syncopal episode Mild Hypokalemia of 3.4 on presentation. Now repleted Evaluated by Quality Control Lab Technician Dr Mina Discussed with him. He recommends discharge. He will set up EP referral/Eval outpatient He does not recommend beta prashanth on dc at this time Stage III lung adenocarcinoma status status post surgery/chemotherapy currently on Tagrisso Total Time Total Time Spent Total Time Spent (In Minutes): 35 Total Time Includes: Examination of the Patient, Discharge Planning, Medication Reconciliation and Communication With Other Providers Discharge Plan Discharge Items Patient Disposition: Home - Self-Care Reason For Visit: PSVT Discharge Diagnosis: Supraventricular tachycardia Near syncope Activity: Resume your previous activity Non-emergency contact: Primary Care Provider and Quality Control Lab Technician Call non-emergency contact if: you have any medication questions Follow-up/Referrals: Duncan Harris MD [Primary Care Provider] - 01/08/24 1:00 pm (Date & Time 01/08/2024 1:00 PM Provider Duncan Harris MD Department Family Practice [facility] ) Diet: Regular Addtl Attending Provider Instructions: Mrs Quinn You came to the hospital due to palpitation and light headedness. You were managed for the above diagnoses. Please ensure followup with your Quality Control Lab Technician. He will make arrangements for Electrophysiology evaluation. It was a pleasure taking care of you Pending Studies at Discharge: No Stand-Alone Forms: My [facility], Smoking Cessation Medications and DC Order Prescriptions: Continued multivitamin Tablet 1 tab PO DAILY Tagrisso 80 mg tablet 80 mg PO DAILY Discharge Orders: Discharge Order (Routine); Ordered 01/02/24 Ordered By: Yareli Liu Admission Data Admit Date/Time: 01/02/24 00:22 Attending Provider: Yareli Liu I. Admit Provider: Boone Pardo Primary Care Provider: Duncan Harris Other Providers: Boone Pardo; Carlos Richards; Smith Vargas; Beny Baltazar; Pee Martinez; Willy Johnson; Mike Chung Jr; Bo Mina; Ivis Saxena; Negar Burton; Arnaldo Ng; Arnaldo Dominguez; Gagandeep Uribe; Shanel Otero; Edu Fisher; Lary Peters; Andrew Strange; William Cottrell; Hugh Zamora; Hao Fang Other Interventions: Discharge Summary Assessment (RN) Last Done: 01/02/24 13:57
[2024-01-02] MEDS ORDERED: METOPROLOL TARTRATE 25 MG TAB PO SCH (21:00)
--- NOTE | 2024-01-03 06:15 | Electrocardiogram Report ---
Test Reason : Blood Pressure : / mmHG Vent. Rate : 094 BPM Atrial Rate : 094 BPM P-R Int : 134 ms QRS Dur : 070 ms QT Int : 376 ms P-R-T Axes : 055 018 033 degrees QTc Int : 470 ms Normal sinus rhythm Biatrial enlargement Low voltage QRS Abnormal ECG When compared with ECG of 13-AUG-2023 15:12, No significant change was found Confirmed by Bo Mina ([id number]) on 01/03/2024 6:14:48 AM Referred By: REFERRED SELF Confirmed By:Bo Mina
== END 2024-01-02 13:57 | disposition home or self-care (01) ==
LOC: ED 19:49 → EDINP 19:49